=== PATIENT | female | born 1970 | race Hispanic/Latino ===

== ENCOUNTER 2024-07-09 19:33 | Emergency (ER) | payer OTHER ==
[~2024-07-09] VITALS: Ht 165.1 cm; Wt 79.5 kg
[2024-07-09] MEDS ORDERED: ACETAMINOPHEN 500 MG TAB PO ONE (19:40)
[2024-07-09] MEDS ORDERED: DICLOFENAC SODIUM 75 MG/TAB PO ONE (19:45)
[2024-07-09] MEDS ORDERED: VOLTAREN - GENE75 MG PO (20:24)
[2024-07-09 20:39] VITALS: BP 177/99
== END 2024-07-09 20:39 | disposition home or self-care (01) | DRG 563 ==
LOC: ED 19:33
DX: S83.91XA Sprain of unspecified site of right knee, initial encounter (principal); X50.0XXA Overexertion from strenuous movement or load, initial encounter; Y99.0 Civilian activity done for income or pay; I10 Essential (primary) hypertension